=== PATIENT | male | born 1960 | race Caucasian/White ===

== ENCOUNTER 2016-07-27 10:00 | Emergency (ER) | payer MEDICAID ==
[~2016-07-27] VITALS: Ht 170.2 cm; Wt 83.6 kg
[~2016-07-27 10:00] MED LIST: ASPI81CH59 PO; CHL5C PO; Furosemide PO; METO25TA5 PO; POT20T PO; Pantoprazole Sodium Sesquihydr PO; SPIR25TA88 PO; THIA100T5 PO
[2016-07-27 10:04] VITALS: BP 135/88
== END 2016-07-27 12:08 | disposition home or self-care (01) ==
LOC: ER 10:01
DX: S01.512A Laceration without foreign body of oral cavity, initial encounter (principal); I10 Essential (primary) hypertension; F17.210 Nicotine dependence, cigarettes, uncomplicated; Z79.82 Long term (current) use of aspirin; Z91.013 Allergy to seafood; W22.8XXA Striking against or struck by other objects, initial encounter; Y93.89 Activity, other specified; Y99.8 Other external cause status; Y92.89 Other specified places as the place of occurrence of the external cause

== ENCOUNTER 2017-09-11 10:50 | Emergency (ER) | payer MEDICAID ==
[~2017-09-11] VITALS: Ht 170.2 cm; Wt 86.2 kg
[2017-09-11] MEDS ORDERED: TETANUS-DIPTH-ACEL PERTUSSIS 0.5ML SYRG IM ONE (13:15)
[2017-09-11 13:25] VITALS: BP 112/71
[2017-09-11] MEDS ORDERED: HYDROcodone-ACET 10/325MG TAB PO ONE (14:30)
== END 2017-09-11 15:22 | disposition home or self-care (01) ==
LOC: ER 10:50
DX: S42.214A Unspecified nondisplaced fracture of surgical neck of right humerus, initial encounter for closed fracture (principal); F17.210 Nicotine dependence, cigarettes, uncomplicated; Z79.82 Long term (current) use of aspirin; W11.XXXA Fall on and from ladder, initial encounter; Y99.8 Other external cause status; Y93.89 Activity, other specified; Y92.89 Other specified places as the place of occurrence of the external cause
CPT/HCPCS: 29105; 73030; 73060; 90471; 90715

== ENCOUNTER 2017-11-10 00:44 | Emergency (ER) | payer MEDICAID ==
[~2017-11-10] VITALS: Ht 172.7 cm; Wt 81.6 kg
[2017-11-10 01:30] VITALS: BP 126/86
== END 2017-11-10 05:26 | disposition left against medical advice (07) ==
LOC: ER 00:44 → EDBD 00:44 → ER 05:26
DX: K92.0 Hematemesis (principal); Z53.21 Procedure and treatment not carried out due to patient leaving prior to being seen by health care provider
CPT/HCPCS: 74176

== ENCOUNTER 2017-11-10 23:18 | Emergency (ER) | payer MEDICAID ==
[~2017-11-10] VITALS: Ht 175.3 cm; Wt 90.7 kg
[2017-11-11] MEDS ORDERED: SODIUM CHLORIDE 0.9% 1,000 ML IVB ONE (00:31)
[2017-11-11 01:01] LABS: Eosinophils # (auto) 0 uL; Hemoglobin 9.7 g/dL (13.5-17.5); Monocytes # (auto) 0.5 uL
[2017-11-11 01:03] LABS: Basophils # (auto) 0.1 uL; Basophils % (auto) 1.9 % (0.0-2.0); Hematocrit 28.2 % (41.0-53.0); Lymphocytes # (auto) 0.8 uL; Lymphocytes % (auto) 10.1 % (10.0-50.0); Mean Corpuscular Hemoglobin 33.7 pg (28.0-32.0); Mean Corpuscular Hgb Conc. 34.5 g/dL (32.0-36.0); Mean Corpuscular Volume 97.5 fL (80.0-100.0); Monocytes % (auto) 6.5 % (0.0-12.0); Neutrophils # (auto) 6.1 uL; Neutrophils % (auto) 81.5 % (37.0-80.0); Red Blood Cells 2.89 10^6/uL (4.5-5.90); Red Cell Distribution Width 15.1 % (11.8-14.3); White Blood Cell 7.5 10^3/uL (4.4-10.8)
[2017-11-11 01:22] LABS: Albumin 3.1 g/dL (3.4-5.0); Bilirubin, Total 1.1 mg/dL (0.2-1.0); Calcium 9.7 mg/dL (8.5-10.1); Potassium 3.4 mmol/L (3.5-5.1); Total Protein 6.5 g/dL (6.4-8.2)
[2017-11-11 01:39] LABS: Platelet Count (auto) 36 10^3/uL (140-450)
[2017-11-11 06:27] VITALS: BP 111/56
[2017-11-11] MEDS ORDERED: THIAMINE INJ 100 MG, MULTIPLE VITAMIN 10 ML, FOLIC ACID 1 MG, MAGNESIUM SULF SDV 50% 8 ... IV SCH ×5 (12:00)
== END 2017-11-11 06:28 | disposition home or self-care (01) ==
LOC: EDBD 23:18 → ER 23:20
DX: F10.10 Alcohol abuse, uncomplicated (principal); E86.0 Dehydration; R79.89 Other specified abnormal findings of blood chemistry; F17.210 Nicotine dependence, cigarettes, uncomplicated; Z91.013 Allergy to seafood; Z79.899 Other long term (current) drug therapy
CPT/HCPCS: 36415; 70450; 80053; 80320; 85025; 93005; 96360

== ENCOUNTER 2023-10-21 13:02 | Inpatient (IN) | payer MEDICAID ==
[~2023-10-21] VITALS: Ht 170.2 cm; Wt 85.4 kg
[~2023-10-21 13:02] MED LIST changes: -CHL5C PO; +CHLO5CAP3 PO; +SPIR25TA PO; -SPIR25TA88 PO
[2023-10-21 13:24] LABS: Basophils # (auto) 0 10 ^3/uL (0-0.2); Basophils % (auto) 0.6 % (0.0-2.0); Eosinophils # (auto) 0.1 10 ^3/uL (0-0.8); Eosinophils % (auto) 1.8 % (0.0-7.0); Hematocrit 43.9 % (41.0-53.0); Hemoglobin 15.3 g/dL (13.5-17.5); Lymphocytes # (auto) 2.6 10 ^3/uL (0.4-5.4); Lymphocytes % (auto) 31.7 % (10.0-50.0); Mean Corpuscular Hemoglobin 33.6 pg (28.0-32.0); Mean Corpuscular Hgb Conc. 34.8 g/dL (32.0-36.0); Mean Corpuscular Volume 96.4 fL (80.0-100.0); Monocytes # (auto) 0.6 10 ^3/uL (0-1.3); Monocytes % (auto) 6.9 % (0.0-12.0); Neutrophils # (auto) 4.9 10 ^3/uL (1.6-8.6); Nucleated Red Blood Cells % 0.1 %; Red Blood Cells 4.56 10^6/uL (4.5-5.90); Red Cell Distribution Width 13.1 % (11.8-14.3); White Blood Cell 8.2 10^3/uL (4.4-10.8)
[2023-10-21 13:39] LABS: INR 1.02 (0.9-1.15); Partial Thromboplastin Time 27.3 SEC (24.5-34.5); Prothrombin Time 10.8 sec (9.3-11.8)
[2023-10-21 13:58] LABS: Alanine Aminotransferase 27 U/L (7-40); Albumin 4.4 g/dL (3.2-4.8); Alkaline Phosphatase 78 U/L (46-116); Anion Gap 7 (5-15); Aspartate Aminotransferase 28 U/L (13-40); BUN/Creatinine Ratio 12.6 (10.0-20.0); Bilirubin, Total 0.2 mg/dL (0.2-1.0); Blood Urea Nitrogen 18 mg/dL (9-23); Calcium 10.3 mg/dL (8.7-10.4); Carbon Dioxide 25 mmol/L (20-30); Chloride 110 mmol/L (98-107); Glucose 112 mg/dL (74-106); Potassium 3.7 mmol/L (3.5-5.1); Sodium 142 mmol/L (136-145); Total Protein 7.1 g/dL (5.7-8.2)
[2023-10-21] MEDS ORDERED: NITROGLYCERIN 0.4 MG SL TAB SL PRN (17:45)
[2023-10-21] MEDS ORDERED: ACETAMINOPHEN 325 MG TAB PO PRN (17:45)
[2023-10-21] MEDS ORDERED: hydrALAZINE HCL 20 MG/ML VL IV PRN (17:45)
[2023-10-21] MEDS ORDERED: DOCUSATE SOD 100 MG CAP PO PRN (17:45)
[2023-10-21] MEDS ORDERED: MORPHINE SULFATE INJ 2 MG/ml SYRG IV PRN (17:45)
[2023-10-21] MEDS: ATORVASTATIN 20 MG TAB PO SCH (22:00)
[2023-10-21] MEDS: ENOXAPARIN SOD 40 MG/0.4 ML SYRINGE SC SCH (22:55)
[2023-10-21] MEDS: NITROGLYCERIN 2% OINT 1GM PKG TD ONE (22:55)
[2023-10-21] MEDS: ASPirin-EC 325mg tab PO ONE (22:56)
[2023-10-21] MEDS: SODIUM CHLORIDE 0.9% 1,000 ML IV ONE (22:56)
[2023-10-21] MEDS: HYDROcodone-ACET 5/325MG TAB PO PRN (23:03)
[2023-10-22] VITALS (7 sets, daily range): BP systolic 101–142; BP diastolic 48–70; PULSE 62–71; RESP 16–18; TEMP 97.6–99.5; O2SAT 0–99
[2023-10-22 04:48] LABS: Basophils # (auto) 0 10 ^3/uL (0-0.2); Hemoglobin 14.5 g/dL (13.5-17.5); Nucleated Red Blood Cells % 0.1 %
[2023-10-22 04:50] LABS: Basophils % (auto) 0.5 % (0.0-2.0); Eosinophils # (auto) 0.2 10 ^3/uL (0-0.8); Eosinophils % (auto) 2.9 % (0.0-7.0); Hematocrit 41.3 % (41.0-53.0); Lymphocytes # (auto) 2.3 10 ^3/uL (0.4-5.4); Lymphocytes % (auto) 28.5 % (10.0-50.0); Mean Corpuscular Hgb Conc. 35.1 g/dL (32.0-36.0); Monocytes # (auto) 0.7 10 ^3/uL (0-1.3); Monocytes % (auto) 8.2 % (0.0-12.0); Neutrophils # (auto) 4.8 10 ^3/uL (1.6-8.6); Neutrophils % (auto) 59.9 % (37.0-80.0); Red Blood Cells 4.26 10^6/uL (4.5-5.90); Red Cell Distribution Width 13.8 % (11.8-14.3)
[2023-10-22 05:05] LABS: Alanine Aminotransferase 26 U/L (7-40); Albumin 4.2 g/dL (3.2-4.8); Alkaline Phosphatase 74 U/L (46-116); Anion Gap 9 (5-15); Aspartate Aminotransferase 24 U/L (13-40); BUN/Creatinine Ratio 13.9 (10.0-20.0); Blood Urea Nitrogen 16 mg/dL (9-23); Calcium 9.8 mg/dL (8.5-10.1); Carbon Dioxide 22 mmol/L (20-30); Chloride 112 mmol/L (98-107); Cholesterol 178 mg/dL (< 200); Glucose 97 mg/dL (74-106); HDL Cholesterol 36 mg/dL (40-59); LDL Cholesterol 131 mg/dL (< 100); Potassium 3.4 mmol/L (3.5-5.1); Sodium 143 mmol/L (136-145); Triglycerides 167 mg/dL (< 150)
[2023-10-22] MEDS: MORPHINE SULFATE INJ 2 MG/ml SYRG IV PRN (05:05)
[2023-10-22] MEDS: ONDANSETRON HCL 4 MG/2 ML VIAL IV PRN (05:05)
[2023-10-22 05:06] LABS: Bilirubin, Total 0.4 mg/dL (0.2-1.0); Total Protein 6.6 g/dL (5.7-8.2)
[2023-10-22] MEDS: PANTOPRAZOLE 40 MG TAB PO SCH (05:08)
[2023-10-22] MEDS ORDERED: IBUP1TAB5 PO (08:52)
[2023-10-22] MEDS ORDERED: LIDO1PAD55 TOP ×2 (08:52→08:53)
[2023-10-22] MEDS ORDERED: TIZA-142 PO (08:52)
[2023-10-22] MEDS ORDERED: DOCU-265 PO (08:52)
[2023-10-22] MEDS ORDERED: HYDR-4072 (08:52)
[2023-10-22] MEDS ORDERED: DICL1GEL73 TOP (08:55)
[2023-10-22] MEDS: ASPirin-EC 81 mg tab PO SCH (09:06)
[2023-10-22] MEDS: METOPROLOL SUCCINATE XL 50 MG TAB PO SCH (09:06)
[2023-10-22] MEDS ORDERED: IOHEXOL 350 MG/ML 100ML IJ ONE (14:08)
[2023-10-22 15:17] LABS: Amphetamine Screen, Urine Neg (NEGATIVE); Barbiturate Scree,Urine Neg (NEGATIVE); Benzodiazephine Screen, Urine Neg (NEGATIVE)
[2023-10-22 15:18] LABS: Cannabinoid Screen, Urine Neg (NEGATIVE); Cocaine Screen, Urine Neg (NEGATIVE); Opiate Scree,Urine Pos (NEGATIVE); Phencyclidine Screen, Urine Neg (NEGATIVE)
[2023-10-22] MEDS: POTASSIUM CHL 20 Meq TABLET PO ONE (18:37)
[2023-10-23 01:00] VITALS: BP 110/51; PULSE 64; RESP 16; TEMP 98.7; O2SAT 94
[2023-10-23 06:25] LABS: Basophils # (auto) 0 10 ^3/uL (0-0.2); Basophils % (auto) 0.4 % (0.0-2.0); Eosinophils # (auto) 0.2 10 ^3/uL (0-0.8); Eosinophils % (auto) 2.7 % (0.0-7.0); Hematocrit 44.9 % (41.0-53.0); Hemoglobin 15.7 g/dL (13.5-17.5); Lymphocytes # (auto) 2.3 10 ^3/uL (0.4-5.4); Lymphocytes % (auto) 32.6 % (10.0-50.0); Mean Corpuscular Hemoglobin 33.9 pg (28.0-32.0); Mean Corpuscular Hgb Conc. 34.9 g/dL (32.0-36.0); Mean Corpuscular Volume 97.1 fL (80.0-100.0); Monocytes # (auto) 0.5 10 ^3/uL (0-1.3); Monocytes % (auto) 7.3 % (0.0-12.0); Neutrophils # (auto) 4.1 10 ^3/uL (1.6-8.6); Nucleated Red Blood Cells % 0.1 %; Red Blood Cells 4.63 10^6/uL (4.5-5.90); Red Cell Distribution Width 13.5 % (11.8-14.3); White Blood Cell 7.2 10^3/uL (4.4-10.8)
[2023-10-23 06:58] LABS: Anion Gap 7 (5-15); Carbon Dioxide 26 mmol/L (20-30); Chloride 110 mmol/L (98-107); Potassium 3.8 mmol/L (3.5-5.1); Sodium 143 mmol/L (136-145)
[2023-10-23 07:00] LABS: Calcium 9.7 mg/dL (8.5-10.1)
[2023-10-23 07:04] LABS: Glucose 91 mg/dL (74-106)
[2023-10-23 07:05] LABS: BUN/Creatinine Ratio 12.8 (10.0-20.0); Blood Urea Nitrogen 15 mg/dL (9-23)
[2023-10-23 09:00] VITALS: BP 138/72; PULSE 64; RESP 20; TEMP 98; O2SAT 95
[2023-10-23] MEDS ORDERED: ASPI1TAB19 PO (11:02)
[2023-10-23] MEDS ORDERED: ATOR-507 PO (11:02)
== END 2023-10-23 13:00 | disposition home or self-care (01) | DRG 198 ==
LOC: ER 13:02 → TELE 18:16 → TELE-E-ADS 10-22 07:45 → TELE-EAST 10-22 16:32
PROVIDERS: ADMIT Nurse Practitioner Family; ATTEND Internal Medicine Geriatric Medicine
DX: R07.89 Other chest pain (principal); I25.10 Atherosclerotic heart disease of native coronary artery without angina pectoris; N17.0 Acute kidney failure with tubular necrosis; E66.9 Obesity, unspecified; I10 Essential (primary) hypertension; M54.9 Dorsalgia, unspecified; M54.50 Low back pain, unspecified; F10.10 Alcohol abuse, uncomplicated; Y90.9 Presence of alcohol in blood, level not specified; E78.5 Hyperlipidemia, unspecified; F17.210 Nicotine dependence, cigarettes, uncomplicated; G89.29 Other chronic pain; I45.10 Unspecified right bundle-branch block; Z91.013 Allergy to seafood; Z79.82 Long term (current) use of aspirin; Z79.899 Other long term (current) drug therapy; Z91.148 Patient's other noncompliance with medication regimen for other reason; Z82.49 Family history of ischemic heart disease and other diseases of the circulatory system; Z82.5 Family history of asthma and other chronic lower respiratory diseases; Z83.3 Family history of diabetes mellitus; Z68.29 Body mass index [BMI] 29.0-29.9, adult
CPT/HCPCS: 36415; 71045; 80048; 80053; 80061; 80307; 83036; 84443; 84484; 85025; 85379; 85610; 85730; 93005; 93306; G0378; J2405